=== PATIENT | male | born 1960 | race Hispanic/Latino ===

== ENCOUNTER 2018-06-22 14:55 | Emergency (ER) | payer BC ==
[2018-06-22] MEDS ORDERED: Lidocaine 1% Inj (20ml) ONE (15:15)
--- NOTE | 2018-06-22 15:19 | ED PDOC ---
Arrival/HPI - General Historian: Patient - History of Present Illness Time/Duration: 1-3 hours Symptom Onset: Sudden Activities at Onset: Light Context: Home <Rebel Olson - Last Filed: 06/22/18 16:59> - General Historian: Patient <Alvarado Ayala DO - Last Filed: 06/22/18 21:02> - General Chief Complaint: Trauma Time Seen by Provider: 06/22/18 15:01 - History of Present Illness Narrative History of Present Illness (Text): 06/22/18 15:25 This is a 57 year old male with no PMH presenting to the ER today after falling on onto his right hand. Patient states he was building a closet and slipped on a shelve and fell forward onto his outstretched right hand. He state pain is most significant in his fifth finger and also notes puncture wound on the same finger. He is right handed. He denies hitting his hear or any significant trauma on any other body part. He does not know his last tetanus shot. He denies headaches, CP, SOB, numbness or tingling and loss of sensation. PCP is Dr. Hung (Rebel Olson) Past Medical History - Provider Review Nursing Documentation Reviewed: Yes <Rebel Olson - Last Filed: 06/22/18 16:59> - Provider Review Nursing Documentation Reviewed: Yes - Infectious Disease Hx of Infectious Diseases: None - Cardiac Hx Cardiac Disorders: No - Pulmonary Hx Respiratory Disorders: No - Neurological Hx Neurological Disorder: No - HEENT Hx HEENT Disorder: No - Renal Hx Renal Disorder: No - Endocrine/Metabolic Hx Endocrine Disorders: No - Musculoskeletal/Rheumatological Hx Musculoskeletal Disorders: No - Psychiatric Hx Substance Use: No - Anesthesia Hx Anesthesia Reactions: No <Jamie COULTERAlvarado - Last Filed: 06/22/18 21:02> Family/Social History - Physician Review Nursing Documentation Reviewed: Yes Family/Social History: Unknown Family HX <Rebel Olson - Last Filed: 06/22/18 16:59> - Physician Review Nursing Documentation Reviewed: Yes Family/Social History: Unknown Family HX Smoking Status: Unknown If Ever Smoked Hx Alcohol Use: No Hx Substance Use: No <Alvarado Ayala DO - Last Filed: 06/22/18 21:02> Allergies/Home Meds <Rebel Olson - Last Filed: 06/22/18 16:59> <Alvarado Ayala DO - Last Filed: 06/22/18 21:02> Allergies/Adverse Reactions: Allergies mycins Allergy (Uncoded 06/22/18 15:16) RASH Home Medications: Home Meds Medication Instructions Recorded Confirmed No Known Home Med 06/22/18 06/22/18 Review of Systems - Physician Review All systems were reviewed & negative as marked: Yes - Review of Systems Constitutional: Normal. absent: Fevers Eyes: Normal. absent: Vision Changes ENT: Normal. absent: Hearing Changes Respiratory: Normal. absent: SOB Cardiovascular: Normal. absent: Chest Pain Gastrointestinal: Normal. absent: Abdominal Pain Genitourinary Male: Normal Musculoskeletal: Other (Fifth digit on right hand is painful and deformed ) Skin: Normal Neurological: Normal. absent: Headache, Dizziness, Focal Weakness Endocrine: Normal <Rebel Olson - Last Filed: 06/22/18 16:59> Physical Exam Vital Signs Reviewed: Yes Temperature: Afebrile Blood Pressure: Normal Pulse: Regular Respiratory Rate: Normal Appearance: Positive for: Well-Appearing, Non-Toxic, Comfortable Pain Distress: None Mental Status: Positive for: Alert and Oriented X 3 - Systems Exam Head: Present: Atraumatic, Normocephalic, Swelling Pupils: Present: PERRL Extroacular Muscles: Present: EOMI Conjunctiva: Present: Normal Mouth: Present: Moist Mucous Membranes Neck: Present: Normal Range of Motion Respiratory/Chest: Present: Clear to Auscultation, Good Air Exchange. No: Respiratory Distress, Accessory Muscle Use Cardiovascular: Present: Regular Rate and Rhythm, Normal S1, S2. No: Murmurs Abdomen: No: Tenderness, Distention, Peritoneal Signs Back: Present: Normal Inspection Upper Extremity: Present: NORMAL PULSES, Tenderness, Swelling, Other (Fifth digit on right hand is deviated contraleterally and has gross deformity. Tenderness to touch throughout fifth digit on right hand and has swelling and superficial puncture wound. ). No: Cyanosis, Edema Lower Extremity: Present: Normal Inspection. No: Edema Neurological: Present: Speech Normal, Motor Func Grossly Intact, Normal Sensory Function Skin: Present: Warm, Dry, Normal Color. No: Rashes Psychiatric: Present: Alert, Normal Insight, Normal Concentration <Rebel Olson - Last Filed: 06/22/18 16:59> Vital Signs Reviewed: Yes Temperature: Afebrile Blood Pressure: Hypertensive Pulse: Tachycardic Respiratory Rate: Normal Appearance: Positive for: Well-Appearing, Non-Toxic, Comfortable Pain Distress: None Mental Status: Positive for: Alert and Oriented X 3 <Alvarado Ayala DO - Last Filed: 06/22/18 21:02> Vital Signs Temp Pulse Resp BP Pulse Ox 06/22/18 17:06 98 F 85 19 142/85 98 06/22/18 16:11 98.8 F 152/56 H 06/22/18 15:07 99.2 F 98 H 18 182/94 H 99 Medical Decision Making <Rebel Olson - Last Filed: 06/22/18 16:59> <Alvarado Ayala DO - Last Filed: 06/22/18 21:02> ED Course and Treatment: Impression: Fifth digit on right hand is deviated and has gross deformity Differential not limited to: Right 5th digits dislocation vs fracture Plan: -Lidocaine and Xray Progress: 06/22/18 15:35 Patient is resting comfortably, vitals are stable and afebrile. Xray shows right 5th digit dislocation . 06/22/18 16:59 Repeat xray shows successful closed reduction. (Rebel Olson) PROCEDURE: DIGITAL BLOCK Performed by the emergency provider Dr. Ayala Indication : Pain control Location: 5th digit Preparation: The area was prepped and cleansed Procedure: There was gross deformity on the right 5th digit. lidocaine 1% was administered. x-ray showed dislocation. Post-Procedure: The patient tolerated the procedure well, and there were no complications. Performed reduction with + movement and x-ray to confirm. Splint was also placed. In agreement with resident note, which includes further HPI details. Patient was seen and evaluated with resident, came up with plan and treatment together. (Alvarado Ayala DO) - RAD Interpretation Radiology Orders: 06/22/18 15:22 HAND RIGHT 5TH DIGIT (FINGER) [RAD] Stat 06/22/18 15:57 HAND RIGHT 5TH DIGIT (FINGER) [RAD] Stat - Medication Orders Current Medication Orders: Discontinued Medications Lidocaine HCl (Lidocaine 1% (20ml)) 20 ml IJ STAT STA Stop: 06/22/18 15:23 Last Admin: 06/22/18 15:29 Dose: 3 ml Tetanus/Reduced Diphtheria/Acell Pertussis (Boostrix Vaccine Inj) 0.5 ml IM .ONCE ONE Stop: 06/22/18 15:23 Last Admin: 06/22/18 15:32 Dose: 0.5 ml MAR Immunization Data Document 06/22/18 15:32 GMI (Rec: 06/22/18 15:32 GMI [id number]) Immunization Data Vaccine Information Sheet Given Yes Vaccine Information Sheet Given Date 06/22/18 Immunization Registry Document 06/22/18 15:32 GMI (Rec: 06/22/18 15:32 GMI [id number]) Immunization Registry Consent Date 10/12/17 - PA / PROJECT SURVEYOR / Resident Statement MATT has reviewed & agrees with the documentation as recorded. MATT has examined the patient and agrees with the treatment plan. <Rebel Olson - Last Filed: 06/22/18 16:59> - Scribe Statement The provider has reviewed the documentation as recorded by the Scribe <Alvarado Ayala DO - Last Filed: 06/22/18 21:02> - Scribe Statement Vashti Graham Provider Scribe Attestation: All medical record entries made by the Scribe were at my direction and personally dictated by me. I have reviewed the chart and agree that the record accurately reflects my personal performance of the history, physical exam, medical decision making, and the department course for this patient. I have also personally directed, reviewed, and agree with the discharge instructions and disposition. (Alvarado Ayala DO) Disposition/Present on Arrival <Rebel Olson - Last Filed: 06/22/18 16:59> - Present on Arrival Any Indicators Present on Arrival: No History of DVT/PE: No History of Uncontrolled Diabetes: No Urinary Catheter: No History of Decub. Ulcer: No History Surgical Site Infection Following: None - Disposition Have Diagnosis and Disposition been Completed?: Yes Disposition Time: 15:50 <Alvarado Ayala DO - Last Filed: 06/22/18 21:02> - Disposition Diagnosis: Finger dislocation Disposition: HOME/ ROUTINE Condition: IMPROVED Discharge Instructions (ExitCare): Finger Dislocation (DC) Additional Instructions: LISA WILSON JR, thank you for letting us take care of you today. Your provider was Alvarado Ayala DO. The emergency medical care you received today was directed at your acute symptoms. If you were prescribed any medication, please fill it and take as directed. It may take several days for your symptoms to resolve. Return to the Emergency Department if your symptoms worsen, do not improve, or if you have any other problems. Please contact your doctor or call one of the physicians/clinics you have been referred to that are listed on the Patient Visit Information form that is included in your discharge packet. Bring any paperwork you were given at discharge with you along with any medications you are taking to your follow up visit. Our treatment cannot replace ongoing medical care by a primary care provider outside of the emergency department. Thank you for allowing the [email or web address] team to be part of your care today. Keep the splint on until you are evaluated by a hand surgeon. Follow up with Dr. Hampton (hand) or your primary care doctor in 1-2 days for re- evaluation and further management. Referrals: Eric Hung MD [Primary Care Provider] - Follow up with primary Jesus Hampton MD [Staff Provider] - Follow up with primary Forms: [employer] (Slovak)
[2018-06-22] MEDS ORDERED: Lidocaine 1% Inj (20ml) IJ STA (15:22)
[2018-06-22] MEDS ORDERED: TDAP Vaccine 0.5 mL Syr IM ONE (15:22)
--- NOTE | 2018-06-22 15:58 | RAD ---
Date of service: 06/22/2018 PROCEDURE: Right small finger radiographs. HISTORY: r/o fx and/or dislocation COMPARISON: None. TECHNIQUE: AP radiograph of the right hand, as well as spot oblique and lateral images of small finger were obtained. FINDINGS: RIGHT SMALL FINGER: There is no acute fracture or focal lesion. Remainder of the right hand (as seen on the AP view) grossly unremarkable. JOINTS: There is dorsal and medial dislocation of the proximal interphalangeal joints of the little finger. 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 The remaining joint spaces are preserved. SOFT TISSUES: Normal. OTHER FINDINGS: None. IMPRESSION: Dorsal and medial dislocation of the proximal interphalangeal joint of the 5th digit. No acute fracture.
--- NOTE | 2018-06-22 16:31 | RAD ---
Date of service: 06/22/2018 PROCEDURE: Right small finger radiographs. HISTORY: post reduction COMPARISON: Plain radiographs performed earlier the same day. TECHNIQUE: AP radiograph of the right hand, as well as spot oblique and lateral images of small finger were obtained. FINDINGS: RIGHT SMALL FINGER: Normal right small finger, without fracture or focal lesion. Remainder of the right hand (as seen on the AP view) grossly unremarkable. JOINTS: There is successful closed reduction of previously dislocated proximal interphalangeal joint of the 5th digit. There is near normal bone alignment. The joint spaces are preserved. SOFT TISSUES: There is mild soft tissue swelling in the little finger. OTHER FINDINGS: None. IMPRESSION: Successful closed reduction of previously dislocated proximal interphalangeal joint of the 5th digit. No acute fracture. Near normal bone alignment.
[2018-06-22 17:08] VITALS: BP 142/85; PULSE 85; RESP 19; TEMP 98; O2SAT 98
== END 2018-06-22 17:06 | disposition home or self-care (01) ==
LOC: ED 14:55
DX: S63.286A Dislocation of proximal interphalangeal joint of right little finger, initial encounter (principal); W01.0XXA Fall on same level from slipping, tripping and stumbling without subsequent striking against object, initial encounter; Z23 Encounter for immunization